=== PATIENT | female | born 1970 | race Caucasian/White ===

== ENCOUNTER 2018-05-23 13:13 | Emergency (ER) | payer MEDICARE, MEDICAID ==
--- OUTSIDE RECORDS SUMMARY | 2018-05-23 13:27 | XMS REPORT | Continuity of Care Document ---
:1970 External Reference #:[id number] Author Name Jamarcus Moreno DO MPH Address [address] [place] [address], [address] [place] [address] Care Team Providers Name Role Phone Ninoska Ortiz M.D. 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 [place] [address] Effective: 2014 Policy Number: [id number] [place] Expires: 2018 PayID: [id number] [address] [place] [address] Expires: 2014 Policy Number: [facility] [place] [id number] PayID: [id number] [address] [address] [place] [address] Effective: 2014 Policy Number: [id number] Medicaid [place] PayID: [id number] [address] [place] [address] Advance Directives Description No Information Available Problems Date Description Provider Status Onset: 11/14/2013 Type 2 diabetes mellitus Jamarcus Moreno DO, MPH Active Family History Date Family Member(s) Problem(s) Comments Father 69 Mother due to Diabetes () Mother due to Asthma () Children 6 Siblings 2 Grandchildren None Social History Type Date Description Comments Sex Unknown Marital Status Occupation Unemployed Work Status Currently Working Cigarette Use Current Cigarette Smoker 1 Pack Daily ETOH Use Denies alcohol use Tobacco Use Start: Unknown End: Unknown Patient is a former smoker Smoking Status Reviewed: 04/27/18 Patient is a former smoker Allergies, Adverse Reactions, Alerts Description No Known Drug Allergies Medications Medication Date Status Form Strength Qnty SIG Indications Ordering Provider Oxycodone HCL 11/14/ Active Tablets 5mg 120tab si by Josh, 2013 s mouth DO Jamarcus, every 6 to MPH 8 hours as directed chronic pain patient Metformin HCL / Active Tablets 500mg Unknown 0000 Levothyroxine / Active Tablets 100mg 30tabs Daily Unknown Sodium 0000 Glimepiride / Active Tablets 4mg Unknown 0000 Lyrica / Active Capsules 150mg si by Unknown 0000 mouth three times a day as directed chronic pain patient Atorvastatin / Active Tablets 20mg 1 by mouth Unknown Calcium 0000 daily MS Contin 11/02/ Hx Tablets ER 15mg 60tabs si po Moreno, 2011 - 12HR q12h DO Jamarcus, 03/05/ MPH 2011 chronic pain patient Neurontin 11/02/ Hx Capsules 100mg 60caps si-2 po Josh, 2011 - q pm ud DO Jamarcus, 03/05/ MPH 2011 chronic pain patient Oxycodone HCL 08/23/ Hx Tablets 5mg 60tabs si-2 po Josh, 2011 - q6-8h ud DO Jamarcus, 09/19/ MPH 2011 chronic pain patient Vicodin / Hx Tablets 5-500mg 28tabs si po Unknown 0000 - q4-6h ud 2011 chronic pain patient Gabapentin / Hx Capsules 100mg 3 at night Unknown 0000 - 2014 Diazepam / Hx Tablets 5mg si by Unknown 0000 - mouth 03/28/ 2017 night chronic pain patient Immunizations Description No Information Available Vital Signs Date Vital Result Comment 04/27/2018 11:09am BP Systolic 126 mmHg BP Diastolic 78 mmHg Heart Rate 74 /min Respiratory Rate 20 /min Height 65 inches 5'5" Weight 192.00 lb Pain Level 5 Pain at this time. Pain Level With Medicine 5 on average with meds Pain Level Without Medicine 10 01/17 without meds BMI (Body Mass Index) 31.9 kg/m2 03/28/2018 2:05pm BP Systolic 132 mmHg BP Diastolic 80 mmHg Heart Rate 84 /min Respiratory Rate 20 /min Height 65 inches 5'5" Weight 187.00 lb Pain Level 3 Pain at this time. Pain Level With Medicine 3 on average with meds Pain Level Without Medicine 01/17 without meds BMI (Body Mass Index) 31.1 kg/m2 02/23/2018 2:14pm BP Systolic 128 mmHg BP Diastolic 80 mmHg Heart Rate 76 /min Respiratory Rate 20 /min Height 65 inches 5'5" Weight 187.00 lb Pain Level 7 Pain at this time. Pain Level With Medicine 6 on average with meds Pain Level Without Medicine 01/17 without meds BMI (Body Mass Index) 31.1 kg/m2 01/26/2018 1:00pm BP Systolic 126 mmHg BP Diastolic 72 mmHg Heart Rate 74 /min Respiratory Rate 20 /min Height 65 inches 5'5" Weight 187.00 lb Pain Level 3 Pain at this time. Pain Level With Medicine 3 on average with meds Pain Level Without Medicine 01/17 without meds BMI (Body Mass Index) 31.1 kg/m2 12/27/2017 1:56pm BP Systolic 140 mmHg BP Diastolic 82 mmHg Heart Rate 84 /min Respiratory Rate 20 /min Height 65 inches 5'5" Weight 192.00 lb Pain Level 5 Pain at this time. Pain Level With Medicine 4 on average with meds Pain Level Without Medicine 01/17 without meds BMI (Body Mass Index) 31.9 kg/m2 11/27/2017 2:29pm BP Systolic 144 mmHg BP Diastolic 86 mmHg Heart Rate 82 /min Respiratory Rate 20 /min Height 65 inches 5'5" Weight 196.00 lb Pain Level 8 Pain at this time. Pain Level With Medicine 8 on average with meds Pain Level Without Medicine 01/17 without meds BMI (Body Mass Index) 32.6 kg/m2 10/27/2017 1:32pm BP Systolic 128 mmHg BP Diastolic 82 mmHg Heart Rate 76 /min Respiratory Rate 20 /min Height 65 inches 5'5" Weight 193.00 lb Pain Level 8 Pain at this time. Pain Level With Medicine 6 on average with meds Pain Level Without Medicine 01/17 without meds BMI (Body Mass Index) 32.1 kg/m2 2017 2:26pm BP Systolic 128 mmHg BP Diastolic 76 mmHg Heart Rate 74 /min Respiratory Rate 20 /min Height 65 inches 5'5" Weight 193.00 lb Pain Level 4 Pain at this time. Pain Level With Medicine 4 on average with meds Pain Level Without Medicine 01/17 without meds BMI (Body Mass Index) 32.1 kg/m2 08/28/2017 2:41pm BP Systolic 120 mmHg BP Diastolic 74 mmHg Heart Rate 76 /min Respiratory Rate 20 /min Height 65 inches 5'5" Weight 191.00 lb Pain Level 3 Pain at this time. Pain Level With Medicine 3 on average with meds Pain Level Without Medicine 01/17 without meds BMI (Body Mass Index) 31.8 kg/m2 07/28/2017 11:48am Respiratory Rate 20 /min Height 65 inches 5'5" Weight 184.00 lb Pain Level Without Medicine 01/17 without meds BMI (Body Mass Index) 30.6 kg/m2 06/28/2017 11:10am BP Systolic 134 mmHg BP Diastolic 84 mmHg Heart Rate 86 /min Respiratory Rate 20 /min Height 65 inches 5'5" Weight 184.00 lb Pain Level 3 Pain at this time. Pain Level With Medicine 2 on average with meds Pain Level Without Medicine 01/17 without meds BMI (Body Mass Index) 30.6 kg/m2 05/29/2017 10:55am BP Systolic 140 mmHg BP Diastolic 88 mmHg Heart Rate 76 /min Respiratory Rate 20 /min Height 65 inches 5'5" Weight 187.00 lb Pain Level 4 Pain at this time. Pain Level With Medicine 4 on average with meds Pain Level Without Medicine 01/17 without meds BMI (Body Mass Index) 31.1 kg/m2 04/28/2017 1:49pm BP Systolic 130 mmHg BP Diastolic 72 mmHg Heart Rate 74 /min Respiratory Rate 20 /min Height 65 inches 5'5" Weight 187.00 lb Pain Level 3 Pain at this time. Pain Level With Medicine 2 on average with meds Pain Level Without Medicine 01/17 without meds BMI (Body Mass Index) 31.1 kg/m2 03/29/2017 2:52pm BP Systolic 128 mmHg BP Diastolic 74 mmHg Heart Rate 76 /min Respiratory Rate 20 /min Height 65 inches 5'5" Weight 187.00 lb Pain Level 4 Pain at this time. Pain Level With Medicine 3 on average with meds Pain Level Without Medicine 01/17 without meds BMI (Body Mass Index) 31.1 kg/m2 02/27/2017 2:08pm BP Systolic 130 mmHg BP Diastolic 78 mmHg Heart Rate 76 /min Respiratory Rate 20 /min Height 65 inches 5'5" Weight 187.00 lb Pain Level 6 Pain at this time. Pain Level With Medicine 6 on average with meds Pain Level Without Medicine 01/17 without meds BMI (Body Mass Index) 31.1 kg/m2 01/26/2017 3:06pm BP Systolic 128 mmHg BP Diastolic 86 mmHg Heart Rate 84 /min Respiratory Rate 20 /min Height 65 inches 5'5" Weight 186.00 lb Pain Level 6 Pain at this time. Pain Level With Medicine 5 on average with meds Pain Level Without Medicine 01/17 without meds BMI (Body Mass Index) 30.9 kg/m2 01/26/2017 2:55pm BP Systolic 138 mmHg BP Diastolic 82 mmHg Heart Rate 84 /min Respiratory Rate 20 /min Height 65 inches 5'5" Weight 186.00 lb Pain Level 3 Pain at this time. Pain Level With Medicine 3 on average with meds Pain Level Without Medicine 01/17 without meds BMI (Body Mass Index) 30.9 kg/m2 12/27/2016 2:29pm BP Systolic 132 mmHg BP Diastolic 78 mmHg Heart Rate 80 /min Respiratory Rate 20 /min Height 65 inches 5'5" Weight 187.00 lb Pain Level 3 Pain at this time. Pain Level With Medicine 3 on average with meds Pain Level Without Medicine 01/17 without meds BMI (Body Mass Index) 31.1 kg/m2 11/23/2016 2:49pm BP Systolic 128 mmHg BP Diastolic 72 mmHg Heart Rate 76 /min Respiratory Rate 20 /min Height 65 inches 5'5" Weight 190.00 lb Pain Level 3 Pain at this time. Pain Level With Medicine 2 on average with meds Pain Level Without Medicine 01/17 without meds BMI (Body Mass Index) 31.6 kg/m2 10/28/2016 1:32pm BP Systolic 126 mmHg BP Diastolic 78 mmHg Heart Rate 76 /min Respiratory Rate 20 /min Height 65 inches 5'5" Weight 192.00 lb Pain Level 3 Pain at this time. Pain Level With Medicine 2 on average with meds Pain Level Without Medicine 01/17 without meds BMI (Body Mass Index) 31.9 kg/m2 09/28/2016 2:18pm BP Systolic 134 mmHg BP Diastolic 80 mmHg Heart Rate 84 /min Respiratory Rate 20 /min Height 65 inches 5'5" Weight 192.00 lb Pain Level 7 Pain at this time. Pain Level With Medicine 6 on average with meds Pain Level Without Medicine 01/17 without meds BMI (Body Mass Index) 31.9 kg/m2 08/29/2016 2:15pm Respiratory Rate 20 /min Height 65 inches 5'5" Weight 192.00 lb Pain Level Without Medicine 10 01/17 without meds BMI (Body Mass Index) 31.9 kg/m2 07/29/2016 2:16pm BP Systolic 130 mmHg BP Diastolic 78 mmHg Heart Rate 76 /min Respiratory Rate 18 /min Height 65 inches 5'5" Weight 192.00 lb Pain Level 3 Pain at this time. Pain Level With Medicine 2 on average with meds Pain Level Without Medicine 01/17 without meds BMI (Body Mass Index) 31.9 kg/m2 06/30/2016 2:48pm BP Systolic 142 mmHg BP Diastolic 86 mmHg Heart Rate 84 /min Respiratory Rate 20 /min Height 65 inches 5'5" Weight 192.00 lb Pain Level 6 Pain at this time. Pain Level With Medicine 5 on average with meds Pain Level Without Medicine 01/17 without meds BMI (Body Mass Index) 31.9 kg/m2 05/31/2016 3:30pm BP Systolic 132 mmHg BP Diastolic 84 mmHg Heart Rate 86 /min Respiratory Rate 20 /min Height 65 inches 5'5" Weight 192.00 lb Pain Level 3 Pain at this time. Pain Level With Medicine 2 on average with meds Pain Level Without Medicine 01/17 without meds BMI (Body Mass Index) 31.9 kg/m2 04/27/2016 2:00pm BP Systolic 128 mmHg BP Diastolic 87 mmHg Heart Rate 86 /min Respiratory Rate 20 /min Height 65 inches 5'5" Weight 192.00 lb Pain Level 4 Pain at this time. Pain Level With Medicine 3 on average with meds Pain Level Without Medicine 01/17 without meds BMI (Body Mass Index) 31.9 kg/m2 04/01/2016 11:32am BP Systolic 146 mmHg BP Diastolic 78 mmHg Heart Rate 74 /min Respiratory Rate 20 /min Height 65 inches 5'5" Weight 192.00 lb Pain Level 8 Pain at this time. Pain Level With Medicine 7 on average with meds Pain Level Without Medicine 01/17 without meds BMI (Body Mass Index) 31.9 kg/m2 03/01/2016 3:39pm BP Systolic 138 mmHg BP Diastolic 84 mmHg Heart Rate 82 /min Respiratory Rate 20 /min Height 65 inches 5'5" Weight 192.00 lb Pain Level 6 Pain at this time. Pain Level With Medicine 6 on average with meds Pain Level Without Medicine 10 01/17 without meds BMI (Body Mass Index) 31.9 kg/m2 02/02/2016 2:20pm BP Systolic 130 mmHg BP Diastolic 78 mmHg Heart Rate 76 /min Respiratory Rate 18 /min Height 65 inches 5'5" Weight 192.00 lb Pain Level 6 Pain at this time. Pain Level With Medicine 6 on average with meds Pain Level Without Medicine 01/17 without meds BMI (Body Mass Index) 31.9 kg/m2 12/31/2015 3:11pm BP Systolic 120 mmHg BP Diastolic 76 mmHg Heart Rate 74 /min Respiratory Rate 20 /min Height 65 inches 5'5" Weight 191.00 lb Pain Level 6 Pain at this time. Pain Level With Medicine 4 on average with meds Pain Level Without Medicine 01/17 without meds BMI (Body Mass Index) 31.8 kg/m2 12/04/2015 2:51pm BP Systolic 128 mmHg BP Diastolic 82 mmHg Heart Rate 84 /min Respiratory Rate 20 /min Height 65 inches 5'5" Weight 194.00 lb Pain Level 5 Pain at this time. Pain Level With Medicine 4 on average with meds Pain Level Without Medicine 01/17 without meds BMI (Body Mass Index) 32.3 kg/m2 11/04/2015 3:10pm BP Systolic 126 mmHg BP Diastolic 78 mmHg Heart Rate 80 /min Respiratory Rate 20 /min Height 65 inches 5'5" Weight 194.00 lb Pain Level 4 Pain at this time. Pain Level With Medicine 3 on average with meds Pain Level Without Medicine 01/17 without meds BMI (Body Mass Index) 32.3 kg/m2 10/05/2015 3:16pm BP Systolic 128 mmHg BP Diastolic 76 mmHg Heart Rate 78 /min Respiratory Rate 18 /min Height 65 inches 5'5" Weight 196.00 lb Pain Level 4 Pain at this time. Pain Level With Medicine 3 on average with meds Pain Level Without Medicine 01/17 without meds BMI (Body Mass Index) 32.6 kg/m2 09/04/2015 2:06pm BP Systolic 132 mmHg BP Diastolic 78 mmHg Heart Rate 80 /min Respiratory Rate 20 /min Height 65 inches 5'5" Weight 192.00 lb Pain Level 3 Pain at this time. Pain Level With Medicine 2 on average with meds Pain Level Without Medicine 10 01/17 without meds BMI (Body Mass Index) 31.9 kg/m2 08/06/2015 3:03pm BP Systolic 126 mmHg BP Diastolic 74 mmHg Heart Rate 76 /min Respiratory Rate 20 /min Height 65 inches 5'5" Weight 184.00 lb Pain Level 6 Pain at this time. Pain Level With Medicine 5 on average with meds Pain Level Without Medicine 10 01/17 without meds BMI (Body Mass Index) 30.6 kg/m2 07/08/2015 3:11pm BP Systolic 124 mmHg BP Diastolic 78 mmHg Heart Rate 86 /min Respiratory Rate 20 /min Height 65 inches 5'5" Weight 182.00 lb Pain Level 3 Pain at this time. Pain Level With Medicine 2 on average with meds Pain Level Without Medicine 10 01/17 without meds BMI (Body Mass Index) 30.3 kg/m2 06/08/2015 3:28pm BP Systolic 130 mmHg BP Diastolic 76 mmHg Heart Rate 74 /min Respiratory Rate 18 /min Height 65 inches 5'5" Weight 184.00 lb Pain Level 4 10, Pain at this time. Pain Level With Medicine 4 10, on average with meds Pain Level Without Medicine 10 01/17 without meds BMI (Body Mass Index) 30.6 kg/m2 05/07/2015 2:56pm BP Systolic 126 mmHg BP Diastolic 78 mmHg Heart Rate 72 /min Respiratory Rate 18 /min Height 65 inches 5'5" Weight 174.00 lb Pain Level 4 Pain at this time. Pain Level With Medicine 4 on average with meds Pain Level Without Medicine 10 01/17 without meds BMI (Body Mass Index) 29.0 kg/m2 04/08/2015 2:26pm BP Systolic 140 mmHg BP Diastolic 82 mmHg Heart Rate 74 /min Respiratory Rate 18 /min Height 65 inches 5'5" Weight 176.00 lb Pain Level 4 4/10 Pain Level With Medicine 4 4/10, on average with meds Pain Level Without Medicine 10 01/17 without meds BMI (Body Mass Index) 29.3 kg/m2 03/02/2015 2:47pm BP Systolic 142 mmHg BP Diastolic 86 mmHg Heart Rate 84 /min Respiratory Rate 20 /min Height 65 inches 5'5" Weight 177.00 lb Pain Level 9 Pain at this time. Pain Level With Medicine 7 on average with meds Pain Level Without Medicine 10 01/17 without meds BMI (Body Mass Index) 29.5 kg/m2 02/02/2015 3:03pm BP Systolic 128 mmHg BP Diastolic 80 mmHg Heart Rate 78 /min Respiratory Rate 18 /min Height 65 inches 5'5" Weight 187.00 lb Pain Level 5 5/10, Pain at this time. Pain Level With Medicine 5 08/17, on average with meds Pain Level Without Medicine 10 01/17 without meds BMI (Body Mass Index) 31.1 kg/m2 01/02/2015 2:07pm BP Systolic 128 mmHg BP Diastolic 80 mmHg Heart Rate 112 /min Respiratory Rate 20 /min Height 65 inches 5'5" Weight 194.00 lb Pain Level 5 Pain at this time. Pain Level With Medicine 4 on average with meds Pain Level Without Medicine 10 01/17 without meds BMI (Body Mass Index) 32.3 kg/m2 12/04/2014 2:18pm BP Systolic 128 mmHg BP Diastolic 72 mmHg Heart Rate 76 /min Respiratory Rate 18 /min Height 65 inches 5'5" Weight 194.00 lb Pain Level 4 410, Pain at this time. Pain Level With Medicine 4 4/10, on average with meds Pain Level Without Medicine 10 01/17 without meds BMI (Body Mass Index) 32.3 kg/m2 11/06/2014 2:10pm Height 65 inches 5'5" Weight 201.00 lb Pain Level 3 Pain at this time. Pain Level With Medicine 2 on average with meds Pain Level Without Medicine 10 01/17 without meds BMI (Body Mass Index) 33.4 kg/m2 10/08/2014 3:14pm BP Systolic 140 mmHg BP Diastolic 88 mmHg Heart Rate 84 /min Respiratory Rate 18 /min Height 65 inches 5'5" Weight 208.00 lb Pain Level 3 3/10, Pain at this time. Pain Level With Medicine 3 3/10, on average with meds Pain Level Without Medicine 10 01/17 without meds BMI (Body Mass Index) 34.6 kg/m2 09/03/2014 2:58pm BP Systolic 128 mmHg BP Diastolic 74 mmHg Heart Rate 80 /min Respiratory Rate 18 /min Height 65 inches 5'5" Weight 208.00 lb Pain Level 3 3/10, Pain at this time. Pain Level With Medicine 3 310, on average with meds Pain Level Without Medicine 10 01/17 without meds BMI (Body Mass Index) 34.6 kg/m2 08/04/2014 2:53pm BP Systolic 128 mmHg BP Diastolic 82 mmHg Heart Rate 84 /min Respiratory Rate 20 /min Height 65 inches 5'5" Weight 208.00 lb Pain Level 4 Pain at this time. Pain Level With Medicine 3 on average with meds Pain Level Without Medicine 10 01/17 without meds BMI (Body Mass Index) 34.6 kg/m2 06/26/2014 2:43pm BP Systolic 120 mmHg BP Diastolic 74 mmHg Heart Rate 70 /min Height 65 inches 5'5" Pain Level 4 4/10, Pain at this time. Pain Level With Medicine 3 310, on average with meds Pain Level Without Medicine 9 12/1806/06/2014 1:09pm BP Systolic 128 mmHg BP Diastolic 80 mmHg Heart Rate 84 /min Respiratory Rate 18 /min Height 65 inches 5'5" Weight 202.00 lb Pain Level 3 310, Pain at this time. Pain Level With Medicine 3 10, on average with meds Pain Level Without Medicine 01/17 without meds BMI (Body Mass Index) 33.6 kg/m2 04/18/2014 1:10pm BP Systolic 124 mmHg BP Diastolic 76 mmHg Heart Rate 74 /min Respiratory Rate 20 /min Height 65 inches 5'5" Weight 203.00 lb Pain Level 6 Pain at this time. Pain Level With Medicine 5 on average with meds Pain Level Without Medicine 10 01/17 without meds BMI (Body Mass Index) 33.8 kg/m2 03/10/2014 4:02pm BP Systolic 128 mmHg BP Diastolic 76 mmHg Heart Rate 78 /min Respiratory Rate 18 /min Height 65 inches 5'5" Weight 195.00 lb Pain Level 3 3/10, Pain at this time. Pain Level With Medicine 3 3/10, on average with meds Pain Level Without Medicine 10 01/17 without meds BMI (Body Mass Index) 32.4 kg/m2 02/12/2014 3:04pm BP Systolic 130 mmHg BP Diastolic 82 mmHg Heart Rate 76 /min Respiratory Rate 18 /min Height 65 inches 5'5" Weight 196.00 lb Pain Level 5 510, Pain at this time. Pain Level With Medicine 4 10, on average with meds Pain Level Without Medicine 10 01/17 without meds BMI (Body Mass Index) 32.6 kg/m2 01/13/2014 3:51pm BP Systolic 138 mmHg BP Diastolic 82 mmHg Heart Rate 84 /min Respiratory Rate 18 /min Height 65 inches 5'5" Weight 198.00 lb Pain Level 5 Pain at this time. Pain Level With Medicine 4 on average with meds Pain Level Without Medicine 10 01/17 without meds BMI (Body Mass Index) 32.9 kg/m2 12/10/2013 3:35pm BP Systolic 128 mmHg BP Diastolic 76 mmHg Heart Rate 80 /min Respiratory Rate 18 /min Height 65 inches 5'5" Weight 196.00 lb Pain Level 3 310, Pain at this time. Pain Level With Medicine 2 2, on average with meds Pain Level Without Medicine 01/17 without meds BMI (Body Mass Index) 32.6 kg/m2 11/28/2013 3:40pm BP Systolic 122 mmHg BP Diastolic 74 mmHg Heart Rate 76 /min Respiratory Rate 18 /min Height 65 inches 5'5" Weight 196.00 lb Pain Level 3 Pain at this time. Pain Level With Medicine 3 on average with meds Pain Level Without Medicine 01/17 without meds BMI (Body Mass Index) 32.6 kg/m2 11/14/2013 2:30pm BP Systolic 128 mmHg BP Diastolic 78 mmHg Heart Rate 76 /min Respiratory Rate 18 /min Height 65 inches 5'5" Weight 196.00 lb Pain Level 10 01/17, Pain at this time. Pain Level Without Medicine 10 01/17 without meds BMI (Body Mass Index) 32.6 kg/m2 03/05/2012 3:05pm BP Systolic 112 mmHg BP Diastolic 74 mmHg Heart Rate 80 /min Respiratory Rate 18 /min Weight 204.00 lb Pain Level 3 06/17, Pain at this time. Pain Level With Medicine 3 06/17, on average with meds Pain Level Without Medicine 10 01/17 without meds 02/02/2012 11:54am BP Systolic 120 mmHg BP Diastolic 70 mmHg Heart Rate 67 /min Respiratory Rate 18 /min Weight 211.00 lb Pain Level 7 10/17, Pain at this time. Pain Level With Medicine 3 3/10, on average with meds Pain Level Without Medicine 10 01/17 without meds 01/18/2012 3:40pm BP Systolic 120 mmHg BP Diastolic 70 mmHg Heart Rate 76 /min Respiratory Rate 18 /min Weight 216.00 lb Pain Level 4 4/10, Pain at this time. Pain Level With Medicine 4 4/10, on average with meds Pain Level Without Medicine 10 12/28/2011 4:27pm BP Systolic 106 mmHg BP Diastolic 68 mmHg Heart Rate 72 /min Respiratory Rate 18 /min Weight 212.00 lb Pain Level 7 7/10, Pain at this time. Pain Level With Medicine 3 310, on average with meds Pain Level Without Medicine 10 01/17 without meds 12/15/2011 3:21pm BP Systolic 114 mmHg BP Diastolic 80 mmHg Heart Rate 68 /min Respiratory Rate 18 /min Weight 215.00 lb Pain Level 6 6/10, Pain at this time. Pain Level With Medicine 3 3/10, on average with meds Pain Level Without Medicine 10 01/17 without meds 11/17/2011 3:07pm BP Systolic 120 mmHg BP Diastolic 70 mmHg Heart Rate 100 /min Respiratory Rate 18 /min Weight 220.00 lb Pain Level 8 8/10, Pain at this time. Pain Level With Medicine 3 3/10, on average with meds Pain Level Without Medicine 10 01/17 without meds 11/03/2011 2:12pm BP Systolic 132 mmHg BP Diastolic 88 mmHg Heart Rate 78 /min Respiratory Rate 18 /min Weight 219.00 lb Pain Level 7 7/10, Pain at this time. Pain Level With Medicine 2 2/10, on average with meds Pain Level Without Medicine 10 01/17 without meds 10/19/2011 4:22pm BP Systolic 110 mmHg BP Diastolic 60 mmHg Heart Rate 80 /min Respiratory Rate 18 /min Weight 215.00 lb Pain Level 3 3/10, Pain at this time. Pain Level With Medicine 3 3/10, on average with meds Pain Level Without Medicine 10 01/17 without meds 09/20/2011 3:58pm BP Systolic 120 mmHg BP Diastolic 82 mmHg Heart Rate 76 /min Respiratory Rate 18 /min Weight 217.00 lb Pain Level 7 7/10, Pain at this time. Pain Level With Medicine 7 7/10, on average with meds Pain Level Without Medicine 10 01/17 without meds 08/24/2011 9:29am BP Systolic 120 mmHg BP Diastolic 80 mmHg Heart Rate 70 /min Respiratory Rate 18 /min Height 65 inches 5'5" Weight 220.00 lb Pain Level 2 2/10, Pain at this time. Pain Level With Medicine 2 2/10, on average with meds Pain Level Without Medicine 10 01/17 without meds BMI (Body Mass Index) 36.6 kg/m2 Results Description No Information Available Procedures Date Code Description Status 03/28/2018 45073 Therapeutic, Prophylactic Or Diagnostic Injection Subq/Im Completed 02/23/2018 11241 Therapeutic, Prophylactic Or Diagnostic Injection Subq/Im Completed 01/26/2018 19302 Therapeutic, Prophylactic Or Diagnostic Injection Subq/Im Completed 12/27/2017 00857 Therapeutic, Prophylactic Or Diagnostic Injection Subq/Im Completed 11/27/2017 20652 Therapeutic, Prophylactic Or Diagnostic Injection Subq/Im Completed 10/27/2017 96186 Therapeutic, Prophylactic Or Diagnostic Injection Subq/Im Completed 2017 44329 Therapeutic, Prophylactic Or Diagnostic Injection Subq/Im Completed 08/28/2017 10578 Therapeutic, Prophylactic Or Diagnostic Injection Subq/Im Completed 07/28/2017 87874 Therapeutic, Prophylactic Or Diagnostic Injection Subq/Im Completed 06/28/2017 88050 Therapeutic, Prophylactic Or Diagnostic Injection Subq/Im Completed 05/29/2017 19320 Therapeutic, Prophylactic Or Diagnostic Injection Subq/Im Completed 04/28/2017 68456 Therapeutic, Prophylactic Or Diagnostic Injection Subq/Im Completed 03/29/2017 59846 Therapeutic, Prophylactic Or Diagnostic Injection Subq/Im Completed 02/27/2017 04941 Therapeutic, Prophylactic Or Diagnostic Injection Subq/Im Completed 01/26/2017 76092 Therapeutic, Prophylactic Or Diagnostic Injection Subq/Im Completed 12/27/2016 03523 Therapeutic, Prophylactic Or Diagnostic Injection Subq/Im Completed 11/23/2016 13081 Therapeutic, Prophylactic Or Diagnostic Injection Subq/Im Completed 10/28/2016 38913 Therapeutic, Prophylactic Or Diagnostic Injection Subq/Im Completed 09/28/2016 42806 Therapeutic, Prophylactic Or Diagnostic Injection Subq/Im Completed 08/29/2016 78709 Therapeutic, Prophylactic Or Diagnostic Injection Subq/Im Completed 07/29/2016 11708 Therapeutic, Prophylactic Or Diagnostic Injection Subq/Im Completed 06/30/2016 15898 Therapeutic, Prophylactic Or Diagnostic Injection Subq/Im Completed 05/31/2016 69350 Therapeutic, Prophylactic Or Diagnostic Injection Subq/Im Completed 04/27/2016 20832 Therapeutic, Prophylactic Or Diagnostic Injection Subq/Im Completed 04/27/2016 46503 Test Autonomic Nervous System, Sudomotor Completed 04/01/2016 64364 Therapeutic, Prophylactic Or Diagnostic Injection Subq/Im Completed 03/01/2016 55304 Therapeutic, Prophylactic Or Diagnostic Injection Subq/Im Completed 02/02/2016 96575 Therapeutic, Prophylactic Or Diagnostic Injection Subq/Im Completed 12/31/2015 30592 Therapeutic, Prophylactic Or Diagnostic Injection Subq/Im Completed 12/04/2015 13443 Therapeutic, Prophylactic Or Diagnostic Injection Subq/Im Completed 11/04/2015 71638 Therapeutic, Prophylactic Or Diagnostic Injection Subq/Im Completed 10/05/2015 30380 Therapeutic, Prophylactic Or Diagnostic Injection Subq/Im Completed 04/08/2015 49927 Test Autonomic Nervous System, Sudomotor Completed 10/08/2014 20574 Test Autonomic Nervous System, Sudomotor Completed 10/27/2011 64101 Nerve Conduction, Sensory Completed 10/27/2011 26445 Nerve Conduction, Sensory Completed Encounters Type Date Location Provider Dx Diagnosis Office Visit 03/28/2018 Main Office as Of Jamarcus Moreno DO G89.29 Other chronic pain 2:30p 05/11/13 MPH M15.0 Primary generalized (osteo)arthritis Z79.891 assisted (current) use of opiate analgesic R53.83 Other fatigue Office Visit 02/23/2018 2:30p Main Office as Jamarcus Moreno G89.29 Other chronic Of 05/11/13 DO, MPH pain M15.0 Primary generalized (osteo)arthritis M54.5 Low back pain Z79.891 assisted (current) use of opiate analgesic R53.83 Other fatigue Office Visit 01/26/2018 1:00p Main Office as Jamarcus Moreno G89.29 Other chronic Of 05/11/13 DO, MPH pain M15.0 Primary generalized (osteo)arthritis M54.5 Low back pain M54.2 Cervicalgia R53.83 Other 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 Office Visit 12/27/2017 2:15p Main Office as Jamarcus Moreno, G89.29 Other chronic Of 05/11/13 DO, MPH pain M15.0 Primary generalized (osteo)arthritis M54.5 Low back pain M54.2 Cervicalgia R53.83 Other 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 Office Visit 11/27/2017 2:45p Main Office as Jamarcus Moreno G89.29 Other chronic Of 05/11/13 DO, MPH pain M54.2 Cervicalgia M54.5 Low back pain M15.0 Primary generalized (osteo)arthritis R53.83 Other fatigue Z79.891 assisted (current) use of opiate analgesic Office Visit 10/27/2017 2:00p Main Office as Jamarcus Moreno G89.29 Other chronic Of 05/11/13 DO, MPH pain M15.0 Primary generalized (osteo)arthritis M54.2 Cervicalgia M54.5 Low back pain R53.83 Other 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 Office Visit 2017 2:45p Main Office as Jamarcus Moreno G89.29 Other chronic Of 05/11/13 DO, MPH pain M15.0 Primary generalized (osteo)arthritis M54.5 Low back pain M54.2 Cervicalgia R53.83 Other 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 Office Visit 08/28/2017 2:30p Main Office as Jamarcus Moreno G89.29 Other chronic Of 05/11/13 DO, MPH pain M15.0 Primary generalized (osteo)arthritis M54.2 Cervicalgia M54.5 Low back pain E11.40 Type 2 diabetes mellitus with diabetic neuropathy, unsp R53.83 Other fatigue Z79.891 assisted (current) use of opiate analgesic Office Visit 07/28/2017 11:30a Main Office as Jamarcus Moreno G89.29 Other chronic Of 05/11/13 DO, MPH pain M15.0 Primary generalized (osteo)arthritis M54.5 Low back pain M54.2 Cervicalgia R53.83 Other fatigue Z79.891 assisted (current) use of opiate analgesic Office Visit 06/28/2017 11:15a Main Office as Jamarcus Moreno, G89.29 Other chronic Of 05/11/13 DO, MPH pain M15.0 Primary generalized (osteo)arthritis M54.2 Cervicalgia M54.5 Low back pain R53.83 Other fatigue Z79.891 assisted (current) use of opiate analgesic Office Visit 05/29/2017 11:15a Main Office as Jamarcus Moreno, G89.29 Other chronic Of 05/11/13 DO, MPH pain M15.0 Primary generalized (osteo)arthritis M54.5 Low back pain M54.2 Cervicalgia R53.83 Other 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 Office Visit 04/28/2017 1:45p Main Office Jamarcus Moreno, M15.0 Primary generalized as Of 05/11/13 DO, MPH (osteo)arthritis M54.5 Low back pain M54.2 Cervicalgia R53.83 Other 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 Office Visit 03/29/2017 3:00p Main Office as Jamarcus Moreno G89.29 Other chronic Of 05/11/13 DO, MPH pain M15.0 Primary generalized (osteo)arthritis M54.5 Low back pain M54.2 Cervicalgia R53.83 Other 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 Office Visit 02/27/2017 2:15p Main Office as Jamarcus Moreno G89.29 Other chronic Of 05/11/13 DO, MPH pain M15.0 Primary generalized (osteo)arthritis M54.2 Cervicalgia M54.5 Low back pain R53.83 Other fatigue Z79.891 assisted (current) use of opiate analgesic Office Visit 01/26/2017 3:00p Main Office as Jamarcus Moreno G89.29 Other chronic Of 05/11/13 DO, MPH pain M15.0 Primary generalized (osteo)arthritis M54.5 Low back pain M54.2 Cervicalgia R53.83 Other 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 Office Visit 12/27/2016 2:30p Main Office as Jamarcus Morneo G89.29 Other chronic Of 05/11/13 DO, MPH pain M15.0 Primary generalized (osteo)arthritis R53.83 Other fatigue M54.5 Low back pain M54.2 Cervicalgia 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 Office Visit 11/23/2016 3:15p Main Office as Jamarcus Moreno, G89.29 Other chronic Of 05/11/13 DO, MPH pain M15.0 Primary generalized (osteo)arthritis M54.2 Cervicalgia M54.5 Low back pain R53.83 Other fatigue Z79.891 assisted (current) use of opiate analgesic E11.40 Type 2 diabetes mellitus with diabetic neuropathy, unsp E03.8 Other specified hypothyroidism Office Visit 10/28/2016 2:00p Main Office as Jamarcus Moreno G89.29 Other chronic Of 05/11/13 DO, MPH pain M54.5 Low back pain M54.2 Cervicalgia M15.0 Primary generalized (osteo)arthritis R53.83 Other fatigue Z79.891 assisted (current) use of opiate analgesic Office Visit 09/28/2016 2:30p Main Office as Jamarcus Moreno G89.29 Other chronic Of 05/11/13 DO, MPH pain M54.5 Low back pain M54.2 Cervicalgia M15.0 Primary generalized (osteo)arthritis R53.83 Other fatigue Z79.891 assisted (current) use of opiate analgesic Office Visit 08/29/2016 2:30p Main Office as Jamarcus Moreno G89.29 Other chronic Of 05/11/13 DO, MPH pain M54.5 Low back pain M54.2 Cervicalgia M15.0 Primary generalized (osteo)arthritis E11.40 Type 2 diabetes mellitus with diabetic neuropathy, unsp E03.8 Other specified hypothyroidism R53.83 Other fatigue Z79.891 assisted (current) use of opiate analgesic Office Visit 07/29/2016 2:30p Main Office as Jamarcus Moreno G89.29 Other chronic Of 05/11/13 DO, MPH pain M54.5 Low back pain M54.2 Cervicalgia M15.0 Primary generalized (osteo)arthritis R53.83 Other fatigue E11.40 Type 2 diabetes mellitus with diabetic neuropathy, unsp Z79.891 assisted (current) use of opiate analgesic Office Visit 06/30/2016 3:30p Main Office as Jamarcus Moreno G89.29 Other chronic Of 05/11/13 DO, MPH pain M54.5 Low back pain M54.2 Cervicalgia M15.0 Primary generalized (osteo)arthritis R53.83 Other fatigue E11.40 Type 2 diabetes mellitus with diabetic neuropathy, unsp E03.8 Other specified hypothyroidism 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 Office Visit 05/31/2016 3:15p Main Office as Jamarcus Moreno, G89.29 Other chronic Of 05/11/13 DO, MPH pain M54.5 Low back pain M54.2 Cervicalgia M15.0 Primary generalized (osteo)arthritis R53.83 Other fatigue E11.40 Type 2 diabetes mellitus with diabetic neuropathy, unsp G90.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 E03.8 Other specified hypothyroidism 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 Office Visit 04/27/2016 2:00p Main Office as Jamarcus Moreno G89.29 Other chronic Of 05/11/13 DO, MPH pain M54.5 Low back pain M54.2 Cervicalgia M15.0 Primary generalized (osteo)arthritis R53.83 Other fatigue E11.40 Type 2 diabetes mellitus with diabetic neuropathy, unsp G90.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 Office Visit 04/01/2016 11:30a Main Office as Jamarcus Moreno G89.29 Other chronic Of 05/11/13 DO, MPH pain M54.5 Low back pain M54.2 Cervicalgia M15.0 Primary generalized (osteo)arthritis R53.83 Other fatigue Z79.891 assisted (current) use of opiate analgesic Office Visit 03/01/2016 3:30p Main Office as Jamarcus Moreno G89.29 Other chronic Of 05/11/13 DO, MPH pain M54.5 Low back pain M54.2 Cervicalgia M15.0 Primary generalized (osteo)arthritis R53.83 Other 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 Office Visit 02/02/2016 2:45p Main Office as Jamarcus Moreno, G89.29 Other chronic Of 05/11/13 DO, MPH pain M54.5 Low back pain M54.2 Cervicalgia M15.0 Primary generalized (osteo)arthritis R53.83 Other fatigue Z79.891 assisted (current) use of opiate analgesic Office Visit 12/31/2015 3:15p Main Office as Jamarcus Moreno G89.29 Other chronic Of 05/11/13 DO, MPH pain M15.0 Primary generalized (osteo)arthritis M54.5 Low back pain M54.16 Radiculopathy, lumbar region M54.2 Cervicalgia R53.83 Other 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 Office Visit 12/04/2015 2:45p Main Office as Jamarcus Moreno G89.29 Other chronic Of 05/11/13 DO, MPH pain M54.5 Low back pain M54.16 Radiculopathy, lumbar region M54.2 Cervicalgia M25.551 Pain in right hip M25.552 Pain in left hip M15.0 Primary generalized (osteo)arthritis R53.83 Other 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 Office Visit 11/04/2015 3:15p Main Office as Jamarcus Moreno G89.29 Other chronic Of 05/11/13 DO, MPH pain M54.5 Low back pain M54.16 Radiculopathy, lumbar region M54.2 Cervicalgia R53.83 Other fatigue Z71.89 Other specified counseling Z79.891 assisted (current) use of opiate analgesic Office Visit 10/05/2015 3:15p Main Office as Jamarcus Moreno G89.29 Other chronic Of 05/11/13 DO, MPH pain M54.5 Low back pain M54.16 Radiculopathy, lumbar region M54.2 Cervicalgia 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 R53.83 Other fatigue Office Visit 09/04/2015 2:15p Main Office as Jamarcus Moreno, G89.29 Other chronic Of 05/11/13 DO, MPH pain M54.5 Low back pain M54.16 Radiculopathy, lumbar region M54.2 Cervicalgia Office Visit 08/06/2015 3:00p Main Office as Jamarcus Moreno, 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, 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) 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 of opiate analgesic G89.29 Other chronic pain M54.5 Low back pain M54.16 Radiculopathy, lumbar region M54.2 Cervicalgia 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 Office Visit 07/08/2015 3:30p Main Office as Jamarcus Moreno Z79.891 assisted Of 05/11/13 DO, 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) use of opiate analgesic G89.29 Other chronic pain M54.5 Low back pain M54.16 Radiculopathy, lumbar region G89.18 Other acute postprocedural pain M54.2 Cervicalgia 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 Office Visit 06/08/2015 3:00p Main Office as Jamarcus Moreno Z79.891 assisted Of 05/11/13 DO, 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) use of opiate analgesic G89.29 Other chronic pain M54.5 Low back pain M54.16 Radiculopathy, lumbar region M54.2 Cervicalgia 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 Office Visit 05/07/2015 3:15p Main Office as Jamarcus Moreno, G89.29 Other chronic Of 05/11/13 DO, MPH pain M54.5 Low back pain M54.16 Radiculopathy, lumbar region M54.2 Cervicalgia G90.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 Office Visit 04/08/2015 2:30p Main Office as Jamarcus Moreno, G89.29 Other chronic Of 05/11/13 DO, MPH pain M54.5 Low back pain M54.16 Radiculopathy, lumbar region M54.2 Cervicalgia G90.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 Office Visit 03/02/2015 3:00p Main Office as Jamarcus Moreno, G89.29 Other chronic Of 05/11/13 DO, MPH pain M54.16 Radiculopathy, lumbar region Office Visit 02/02/2015 3:00p Main Office as Jamarcus Moreno, G89.29 Other chronic Of 05/11/13 DO, MPH pain M54.5 Low back pain M54.2 Cervicalgia Office Visit 01/02/2015 1:15p Main Office as Jamarcus Moreno, V58.69 Medications Long Of 05/11/13 DO, MPH Term (Current) Use Encounter 338.29 Other Chronic Pain 713.5 Arthropathy W/ Neurological Disorders 724.2 Lumbago 723.1 Cervicalgia V58.69 Medications Alf (Current) Use Encounter Office Visit 12/04/2014 2:30p Main Office as Jamarcus Moreno, 338.29 Other Chronic Of 05/11/13 DO, MPH Pain 713.5 Arthropathy W/ Neurological Disorders 724.2 Lumbago 723.1 Cervicalgia Office Visit 11/06/2014 2:15p Main Office as Jamarcus Moreno, 338.29 Other Chronic Of 05/11/13 DO, MPH Pain 723.1 Cervicalgia 724.2 Lumbago 713.5 Arthropathy W/ Neurological Disorders Office Visit 10/08/2014 3:10p Main Office as Joelle Xie, 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 723.1 Cervicalgia 724.2 Lumbago 337.9 Autonomic Nervous System Disorder Unspec V65.42 Counseling On Substance Use & Abuse Office Visit 09/03/2014 3:00p Main Office as Joelle Xie, 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 724.2 Lumbago 723.1 Cervicalgia V58.69 Medications Alf (Current) Use Encounter Office Visit 08/04/2014 3:00p Main Office as Jamarcus Moreno, 338.29 Other Chronic Of 05/11/13 DO, MPH Pain 723.1 Cervicalgia 724.2 Lumbago Office Visit 06/26/2014 2:40p Main Office as Joelle Xie, 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 723.1 Cervicalgia 724.2 Lumbago Office Visit 06/06/2014 1:15p Main Office as Jamarcus Moreno, 338.29 Other Chronic Of 05/11/13 DO, MPH Pain 724.4 Neuritis Or Radiculitis Thoracic Or Lumbosacral Unspec 724.2 Lumbago Office Visit 04/18/2014 1:00p Main Office as Jamarcus Moreno, 338.29 Other Chronic Of 05/11/13 DO, MPH Pain 724.2 Lumbago 724.4 Neuritis Or Radiculitis Thoracic Or Lumbosacral Unspec Office Visit 03/10/2014 4:00p Main Office as Jamarcus Moreno, 338.29 Other Chronic Of 05/11/13 DO, MPH Pain 724.2 Lumbago 724.4 Neuritis Or Radiculitis Thoracic Or Lumbosacral Unspec 713.5 Arthropathy W/ Neurological Disorders V58.69 Medications Care Consultant (Current) Use Encounter Office Visit 02/12/2014 3:00p Main Office as Jamarcus Moreno, 338.29 Other Chronic Of 05/11/13 DO, MPH Pain 724.2 Lumbago 724.4 Neuritis Or Radiculitis Thoracic Or Lumbosacral Unspec 713.5 Arthropathy W/ Neurological Disorders Office Visit 01/13/2014 3:00p Main Office as Jamarcus Moreno, 338.29 Other Chronic Of 05/11/13 DO, MPH Pain 724.2 Lumbago 724.4 Neuritis Or Radiculitis Thoracic Or Lumbosacral Unspec Office Visit 12/10/2013 3:15p Main Office as Of Jamarcus Moreno DO, 724.2 Lumbago 05/11/13 MPH 724.4 Neuritis Or Radiculitis Thoracic Or Lumbosacral Unspec 713.5 Arthropathy W/ Neurological Disorders Office Visit 11/28/2013 3:00p Main Office as Jamarcus Moreno, 338.29 Other Chronic Of 05/11/13 DO, MPH Pain 724.2 Lumbago 724.4 Neuritis Or Radiculitis Thoracic Or Lumbosacral Unspec 713.5 Arthropathy W/ Neurological Disorders Office Visit 11/14/2013 2:00p Main Office as Jamarcus Moreno, 338.29 Other Chronic Of 05/11/13 DO, MPH Pain 724.2 Lumbago 724.4 Neuritis Or Radiculitis Thoracic Or Lumbosacral Unspec 713.5 Arthropathy W/ Neurological Disorders V58.69 Medications Alf (Current) Use Encounter Office Visit 03/05/2012 2:45p Main Office as Of Jamarcus Moreno DO, 724.2 Lumbago 05/11/13 MPH 724.4 Neuritis Or Radiculitis Thoracic Or Lumbosacral Unspec Office Visit 02/02/2012 11:30a Main Office as Of Jamarcus Moreno DO, 724.2 Lumbago 05/11/13 MPH 724.4 Neuritis Or Radiculitis Thoracic Or Lumbosacral Unspec Office Visit 01/18/2012 3:30p Main Office as Of Jamarcus Moreno DO, 724.2 Lumbago 05/11/13 MPH 724.4 Neuritis Or Radiculitis Thoracic Or Lumbosacral Unspec Office Visit 12/28/2011 4:15p Main Office as Of Jamarcus Moreno DO, 724.2 Lumbago 05/11/13 MPH 724.4 Neuritis Or Radiculitis Thoracic Or Lumbosacral Unspec Office Visit 12/15/2011 3:15p Main Office as Of Jamarcus Moreno DO, 724.2 Lumbago 05/11/13 MPH 724.4 Neuritis Or Radiculitis Thoracic Or Lumbosacral Unspec Office Visit 11/17/2011 3:15p Main Office as Of Jamarcus Moreno DO, 724.2 Lumbago 05/11/13 MPH 724.4 Neuritis Or Radiculitis Thoracic Or Lumbosacral Unspec Office Visit 11/03/2011 2:00p Main Office as Of Jamarcus Moreno DO, 724.2 Lumbago 05/11/13 MPH Office Visit 10/19/2011 4:00p Main Office as Of Jamarcus Moreno DO, 724.2 Lumbago 05/11/13 MPH Office Visit 09/20/2011 3:45p Main Office as Of Jamarcus Moreno DO, 724.2 Lumbago 05/11/13 MPH Office Visit 08/24/2011 9:00a Main Office as Of Jamarcus Moreno DO, 724.2 Lumbago 05/11/13 MPH Plan of Treatment Future Appointment(s):05/25/2018 1:30 pm - Jamarcus Moreno DO, MPH at Main Office as Of 05/11/1400 - Jamarcus Moreno DO, MPHG89.29 Other chronic painComments:Chronic. Symptoms and complaints discussed and reviewed today. No significant changes in physical findings. Continue current medical pain management.M15.0 Primary generalized (osteo)arthritisComments:Chronic. Symptoms and complaints discussed and reviewed today. No significant changes in physical findings. Continue current medical pain management.M54.5 Low back painComments: Chronic. Symptoms and complaints discussed and reviewed today.No changes in physical findings. Patient is stable and comfortable when current medical therapy is rendered.M54.2 CervicalgiaComments:Chronic. Symptoms and complaints discussed and reviewed today. No significant changes in physical findings. Continue current medical pain management. ~B_ ~b_R53.83 Other fatigueComments: Symptoms and complaints discussed and reviewed today. No significant changes in physical findings. Continue current medical pain management. B12 injection administered after patient evaluated. 1ml IM for fatigue. (See Consent for injection-B12 document for lot number and expiration date.)Z79.891 assisted ( current) use of opiate analgesicNew Labs:Urine Drug Screen, Ordered: Comments:Urine drug screen sample taken today to monitor opiate use and to monitor use of illicit substances.Will discuss results at next appointment.The following tests were ordered:6 AM, AMPH, CAROL, ANDREW, BUP, CARIS, COCM, COT, ETG , FENT, MCSHSG, OPI, OXY, PCP, TAPEN, XTSY, ZOLP. ~I_A urine drug test ( UDT) was ordered for this patient and collected on site today. Creatinine has been ordered as well for specimen validity, not for kidney function. Preliminary UDT results are not final and should not be used to determine patient care or plan of treatment. Initially a qualitative immunoassay screen will be done. Any inconsistent or positive findings will be further tested with a more comprehensive quantitative confirmation LCMS study. It is part of the treatment process of prescribing controlled substances and is considered standard of care.~i_AllComments:All above symptoms and complaints discussed as well as diagnoses reviewed.Continue trial of opioid pain management - note changes below; injection therapy, osteopathic manipulation (OMT), PT / modalities, and consults as needed to manage chronic pain.Side effects discussed ; anticipatory guidance given. Patient clearly understands and agrees with all medical treatments and suggestions. All medicines prescribed are adequate and appropriate for this patient's complaint of pain, medical history, physical, and personal goals.Goals of Treatment are to provide adequate and appropriate multidisciplinary medical pain management to increase/ maintain patient's quality of life and functionality while maintaining satisfactory side effect profile and minimizing chcf end-organ damage. Activity as toleratedContinue with PCP
[2018-05-23 13:49] VITALS: BP 138/82
[2018-05-23] MEDS ORDERED: Ketorolac INJ* 60 MG/2 ML VIAL IM ONE (14:05)
--- NOTE | 2018-05-23 14:16 | UC ---
Back Pain HPI - HPI Summary HPI Summary: 47-year-old woman comes in with a chief complaint of back pain. Patient has a long history of chronic intermittent back pain. She's had several back surgeries. Her last surgery she reports was in December 2017. 4 days ago patient started having back pain is radiating down to her right buttock into her right leg. No known trauma. No difficulty controlling urine or bowels. Does feel like the leg is a little bit weak. She also has diabetic neuropathy and has chronic numbness in both her feet. She saw neurosurgery 2 days ago and they've ordered an MRI for tomorrow. Patient's been seeing the pain clinic and has been on oxycodone 5 mg 4 times a day. Since the pain increased she is increased her dosage to 10 mg 4 times a day and has run out of her oxycodone. She has an appointment with her pain specialist in 2 days. Pain is worse with any kind of movement. She is able to walk. - History of Current Complaint Chief Complaint: UCBackPain Stated Complaint: BACK PAIN Time Seen by Provider: 05/23/18 13:34 Pain Intensity: 10 - Allergies/Home Medications Allergies/Adverse Reactions: Allergies Allergy/AdvReac Type Severity Reaction Status Date / Time No Known Allergies Allergy Verified 05/23/18 13:35 Home Medications: Home Medications BuPROPion XL* [Bupropion XL*] 300 mg PO DAILY 05/23/18 [History Confirmed ] oxyCODONE TAB* [Roxycodone TAB 5 mg*] 10 mg PO Q4H PRN 05/23/18 [History Confirmed 05/23/18] PMH/Surg Hx/FS Hx/Imm Hx Previously Healthy: Yes - CHRONIC INTERMITTENT BACK PAIN Endocrine History: Diabetes, Hypothyroidism, Dyslipidemia - Surgical History Surgical History: Yes Surgery Procedure, Year, and Place: LEFT KNEE SURGERY X2 1984. HYSTERECTOMY-3 BACK SURGERYS LOW. 2 RUPTURED DISC REPAIRED L4-L5. CARPAL TUNNEL. HAMMER TOE LEFT. CHOLYCYSTECTOMY - Family History Known Family History: Positive: Non-Contributory - Social History Alcohol Use: None Substance Use Type: None Smoking Status (MU): Current Every Day Smoker Type: Cigarettes Amount Used/How Often: 3-4 cigars a day, has smoked for 15 years Review of Systems All Other Systems Reviewed And Are Negative: Yes Constitutional: Positive: Negative Skin: Positive: Negative Eyes: Positive: Negative ENT: Positive: Negative Respiratory: Positive: Negative Cardiovascular: Positive: Negative Gastrointestinal: Positive: Negative Motor: Positive: Weakness Neurovascular: Positive: Negative Musculoskeletal: Positive: Other: - SEE HPI Neurological: Positive: Weakness Psychological: Positive: Negative Is Patient Immunocompromised?: No Physical Exam Triage Information Reviewed: Yes Appearance: Well-Appearing, Well-Nourished, Pain Distress - MILD TO MODERATE. WORSE WITH MOVEMENT. Vital Signs: Initial Vital Signs Temp 98.4 F 05/23/18 13:38 Pulse 92 05/23/18 13:38 Resp 24 05/23/18 13:38 BP 138/82 05/23/18 13:38 Pulse Ox 98 05/23/18 13:38 Vital Signs Reviewed: Yes Eye Exam: Normal Eyes: Positive: Conjunctiva Clear Neck exam: Normal Neck: Positive: Supple Respiratory: Positive: Lungs clear, Normal breath sounds, No respiratory distress Cardiovascular: Positive: RRR Musculoskeletal: Positive: Other: - Tender to palpation tender to palpation mid lower back and also into the right sciatic distribution to the right buttock. Patient is able to move both legs she reports chronic weakness in the left leg. Exam was incomplete due to pain. Denies any sensation deficit on exam. Patient is able to walk. Neurological: Positive: Alert Psychological Exam: Normal Psychological: Positive: Age Appropriate Behavior Skin Exam: Normal Back Pain Course/Dx - Course Course Of Treatment: Patient was given Toradol 60 mg IM in clinic. Patient reports that she is due to see her pain specialist in 2 days. She was taking 5 mg of oxycodone 4 times a day and has since doubled the dose due to this pain. I wrote for oxycodone 10 mg total number of 12 to cover through the next visit with her pain specialist. Patient inform me that she's keeping her pain specialist and neurosurgery informed of her present condition. No difficulty controlling urine or bowel at this time. Patient is able walk. She has an MRI scheduled for tomorrow. I let her know that if she has any increasing weakness or unable to control urine or bowel she needs to get reevaluated right away. - Differential Dx/Diagnosis Provider Diagnosis: Low back pain, Lumbar radiculopathy, right Discharge - Sign-Out/Discharge Documenting (check all that apply): Patient Departure All imaging exams completed and their final reports reviewed: No Studies - Discharge Plan Condition: Stable Disposition: HOME Prescriptions: Oxycodone TAB(NF) [Oxycodone HCl 10 MG] 10 mg PO Q6H PRN #12 tab MDD 4 PRN Reason: Pain Patient Education Materials: Acute Low Back Pain (ED), Chronic Back Pain (DC), Lumbar Radiculopathy (ED) Referrals: Daniel Graves MD [Primary Care Provider] - Additional Instructions: FOLLOW UP WITH NEUROSURGERY AND PAIN CLINIC SCHEDULED. GET RECHECKED FOR ANY WORSENING OF YOUR CONDITION; WEAKNESS, NUMBNESS, DIFFICULTY CONTROLLING BOWEL OR BLADDER OR QUESTIONS OR CONCERNS. - Billing Disposition and Condition Condition: STABLE Disposition: Home
== END 2018-05-23 14:30 | disposition home or self-care (01) ==
LOC: UCCORT 13:13
DX: M54.16 Radiculopathy, lumbar region (principal); M54.5 Low back pain; F17.210 Nicotine dependence, cigarettes, uncomplicated; E11.9 Type 2 diabetes mellitus without complications; Z88.5 Allergy status to narcotic agent
CPT/HCPCS: 96372; 99212; G0463; J1885

== ENCOUNTER 2018-06-08 06:13 | Observation (INO) | payer MEDICARE, MEDICAID ==
[~2018-06-08 06:13] MED LIST: Buffered Lidocaine 1% SYRIN* 1 ML/SYRINGE INTRADERM ONE; Famotidine IV* 10 MG/ML 2 ML (20 mg) IV ONE; Lactated Ringers 1000 ML Bag* 1,000 ML IV SCH
[2018-06-08] MEDS ORDERED: Famotidine IV* 10 MG/ML 2 ML (20 mg) ONE (06:39)
[2018-06-08] MEDS ORDERED: ceFAZolin 2 GM PREMIX in ORs 2 GM/50 ML BAG IVPB ONE (06:39)
[2018-06-08] MEDS ORDERED: fentaNYL* 50 MCG/ML 5 ML VIAL (250 MCG VIAL) ONE (07:58)
[2018-06-08] MEDS ORDERED: Midazolam* 1 MG/ML 5 ML VIAL (5 MG) ONE (07:58)
[2018-06-08] MEDS ORDERED: Propofol* 10 MG/ML 20 ML BTL ONE (07:58)
[2018-06-08] MEDS ORDERED: Lidocaine 2% PF * 5 ML VIAL ONE (07:58)
[2018-06-08] MEDS ORDERED: Cisatracurium* 2 MG/ML MDV 5 ML ONE (07:58)
[2018-06-08] MEDS ORDERED: Dexamethasone IV* 4 MG/ML 1 ML (4 MG) ONE (07:58)
[2018-06-08] MEDS ORDERED: Phenylephrine INJ* 10 MG/ML 1 ML VIAL (10 MG) ONE (07:58)
[2018-06-08] MEDS ORDERED: Ondansetron INJ* 2 MG/ML VIAL ONE (07:58)
[2018-06-08] MEDS ORDERED: Lidocain 1% EPI 1:100,000 * 30 ML MDV ONE (08:15)
[2018-06-08] MEDS ORDERED: Thrombin 5,000 UNITS* 1 APPLIC KIT - topical use - TOPICAL ONE (08:16)
[2018-06-08] MEDS ORDERED: Bacitracin IV* 50,000 UNITS INJ ONE (08:16)
[2018-06-08] MEDS ORDERED: VASOPRESSIN 20 UNITS/ML 1 ML VIAL ONE (08:57)
[2018-06-08] MEDS ORDERED: Neostigmine Methylsulfate* 1 MG/ML 10 ML VIAL (1 mg/ml) ONE (09:44)
[2018-06-08] MEDS ORDERED: Glycopyrrolate IV* 0.2 MG/ML 1 ML VIAL ONE (09:44)
[2018-06-08] MEDS ORDERED: Naloxone* 0.4 MG/ML 1 ML VIAL IV PRN (10:07)
[2018-06-08] MEDS ORDERED: Levalbuterol 0.63MG/3ML NEB* UNIT OF USE INH PRN (10:07)
[2018-06-08] MEDS ORDERED: Ondansetron INJ* 2 MG/ML VIAL IV PRN ×2 (10:07→10:18)
[2018-06-08] MEDS ORDERED: fentaNYL* 50 MCG/ML 2 ML VIAL (100 MCG VIAL) IV PRN (10:07)
[2018-06-08] MEDS ORDERED: HYDROcodone/ACETAMIN 5-325 MG* 1 TAB PO PRN (10:18)
[2018-06-08] MEDS ORDERED: Zolpidem TAB* 10 MG PO PRN (10:18)
[2018-06-08] MEDS ORDERED: Acetaminophen TAB* 325 MG PO PRN (10:18)
[2018-06-08] MEDS ORDERED: Magnesium Hydroxide LIQ* 30 ML UDC PO PRN (10:18)
[2018-06-08] MEDS ORDERED: oxyCODONE TAB* 5 MG TAB PO PRN (10:23)
[2018-06-08] MEDS ORDERED: Lactated Ringers 1000 ML Bag* 1,000 ML IV SCH (11:00)
[2018-06-08] MEDS ORDERED: Levalbuterol 0.63MG/3ML NEB* UNIT OF USE INH ONE (11:14)
[2018-06-08 14:38] VITALS: BP 136/86
[2018-06-08] MEDS ORDERED: Pregabalin CAP(*) 100 MG PO SCH (21:00)
[2018-06-09] MEDS ORDERED: Levothyroxine TAB* 100 MCG TAB PO SCH (06:00)
[2018-06-09] MEDS ORDERED: GLIMEPIRIDE 4 MG PO SCH (09:00)
[2018-06-09] MEDS ORDERED: BuPROPion XL* 300 MG TAB.XL PO SCH (09:00)
[2018-06-09] MEDS ORDERED: Atorvastatin* 20 MG TAB PO SCH (09:00)
--- NOTE | 2018-06-13 20:57 | OP ---
DATE OF OPERATION: 06/08/18 - ROOM #352 DATE OF : 68 SURGEON: Jorge Ayers MD ANESTHESIA: General. PRE-OP DIAGNOSIS: Recurrent herniated nucleus pulposus, L4-5, on the right. POST-OP DIAGNOSIS: Recurrent herniated nucleus pulposus, L4-5, on the right. OPERATIVE PROCEDURE: Redo lumbar diskectomy, L4-5, on the right with microdissection. DESCRIPTION OF PROCEDURE: After satisfactory general anesthesia was obtained, the patient was placed on the operating table in the prone position with the chest supported on the Miles frame and the back slightly flexed. The lumbar region was then clipped, prepped, and draped in a sterile manner for a lumbar laminectomy and a skin incision outlined along a previous incision from L4 to L5. This incision was infiltrated with 1% Xylocaine with epinephrine, after which it was turned down sharply to the dense scar tissue and cicatrix. The paraspinal musculature and dense scar tissue was dissected free at the L4-5 level on the right side. An intraoperative x-ray was obtained verifying proper interspace localization. Utilizing curettes and Kerrison rongeurs, the extent of the prior laminectomy was extended until normal dura could be encountered. At this point of the procedure, the operating microscope was brought into the field and the remainder of the procedure was done under microscopic visualization. Utilizing the microdissector, a plane was developed between the dura and a large extruded disk recurrence. Multiple fragments of disk were removed from beneath the dura. The disk space was itself was then encountered and cleared of any loose disk material using pituitary forceps and curettes. At the conclusion of the decompression, the L5 nerve root was noted to be free in its course. The wound was then thoroughly irrigated after which the fascia was reapproximated with 0 Vicryl suture, the subcutaneous tissue closed with 3- 0 Vicryl suture, and the skin closed with skin clips. The estimated blood loss was less than 50 cc, and the final sponge, padding, and needle counts were correct. The patient was taken to the recovery room, extubated, and in stable condition. [id number]/[facility] #: [id number] [facility]ITAL[facility]
--- NOTE | 2018-06-20 13:56 | DS ---
DISCHARGE SUMMARY: DATE OF ADMISSION: 06/08/18 DATE OF DISCHARGE: 06/08/18 ATTENDING PROVIDER: Jorge Ayers MD * (DICTATED BY AYAN RANGEL) DISCHARGE DIAGNOSES: 1. Herniated nucleus pulposus L4-5, right. 2. Diabetes. 3. Previous lumbar spine surgery x3. SPECIAL PROCEDURE: Repeat lumbar diskectomy at L4-5 on the right. HOSPITAL COURSE: This 47-year-old female was seen in the office for the recurrent right-sided lumbar radiculopathy. She has undergone lumbar diskectomy L4-[address] Ayers on 12/12/17 and has recovered well. She presented in office with recurrent symptoms on 05/21/18. MRI was obtained showing a recurrent herniated disk to the right. She has not improved with medications and therapy and therefore elected for surgical intervention. On the day of admission, she was taken to surgery where under general anesthesia, a repeat lumbar diskectomy at L4-5 on the right as outpatient was carried out. Postoperatively, she was doing well and the right lower extremity symptoms have resolved. She was eating, drinking and voiding without difficulty and she was ambulating independently. Pain was well controlled with oral pain medications. On the day of surgery, she was discharged home to the care of her family. She will follow up in the office in approximately [address] Ayers. DISCHARGE MEDICATIONS: None. DISCHARGE INSTRUCTIONS: Wound care and activity level were discussed with the patient. Information on this was provided. AYAN RANGEL [id number]/[facility] #: [id number] [facility]
== END 2018-06-08 17:00 | disposition home or self-care (01) ==
LOC: OR 06:13 → SSU 10:19
PROVIDERS: ADMIT Neurological Surgery; ATTEND Neurological Surgery
DX: M51.26 Other intervertebral disc displacement, lumbar region (principal); Z72.0 Tobacco use; M54.9 Dorsalgia, unspecified; M79.604 Pain in right leg
CPT/HCPCS: 72100; 96374; 96376; A9270-GY; G0378; J0690; J1100; J2250; J2405; J2704; J2710; J3010